=== PATIENT | female | born 1965 | race Caucasian/White ===

== ENCOUNTER → 2019-03-01 | Outpatient (CLI) | payer BC ==
--- NOTE | 2019-03-01 15:31 | KCIC ---
EXAM: Cervical spine, single view. HISTORY: Rheumatoid arthritis. COMPARISON: None. FINDINGS: A lateral view of the cervical spine is obtained. There is mild anterolisthesis of C4 on C5. There is degenerative endplate remodeling with disc space narrowing predominantly at C5-C6, and to lesser extent, C4-C5 and C6-C7. There is multilevel facet arthropathy. No fracture is seen. There is kyphosis centered at the cervicothoracic junction. IMPRESSION: 1. Multilevel degenerative change, primarily at C5-C6. 2. Mild anterolisthesis of C4 on C5. Electronically signed by: Sparkle Husain MD (03/01/2019 3:28 PM) [facility]
--- NOTE | 2019-03-01 15:34 | KCIC ---
EXAM: Bilateral knees, single view. HISTORY: Rheumatoid arthritis. COMPARISON: None. FINDINGS: A frontal view of both knees is obtained. There is no fracture, dislocation or subluxation. There is no lytic or sclerotic osseous lesion. There is no periosteal reaction. There is no joint space narrowing. IMPRESSION: No acute osseous finding. Electronically signed by: Sparkle Husain MD (03/01/2019 3:31 PM) [facility]
--- NOTE | 2019-03-01 15:35 | KCIC ---
EXAM: Pelvis, single view. HISTORY: Rheumatoid arthritis. COMPARISON: None. FINDINGS: A frontal view of the pelvis is obtained. There is no fracture, dislocation or subluxation. The femoral heads are normal in position. There may be degenerative subchondral cyst formation at the left greater than right femoral head neck junction. This is not clearly within limits to suggest chronic hip impingement. IMPRESSION: No acute osseous finding. Electronically signed by: Sparkle Husain MD (03/01/2019 3:32 PM) [facility]
--- NOTE | 2019-03-01 15:42 | KCIC ---
EXAM: Bilateral hands and feet, single view. HISTORY: Rheumatoid arthritis. COMPARISON: None. FINDINGS: Single views of both hands and feet are obtained. There is no fracture, dislocation or subluxation. The alignment and joint spaces are unremarkable. No erosion or suspicious lytic or sclerotic osseous lesion is seen. No soft tissue lesion is seen. IMPRESSION: No acute osseous finding. Electronically signed by: Sparkle Husain MD (03/01/2019 3:39 PM) [facility]
== END | disposition home or self-care (01) ==
LOC: KCIC 14:30
PROVIDERS: ATTEND Internal Medicine Rheumatology
DX: M47.812 Spondylosis without myelopathy or radiculopathy, cervical region (principal); M40.292 Other kyphosis, cervical region; M48.02 Spinal stenosis, cervical region
CPT/HCPCS: 72020; 72170; 73120; 73565; 73620

== ENCOUNTER → 2019-04-05 | Outpatient (CLI) | payer BC ==
--- NOTE | 2019-04-05 13:33 | KCIC ---
MRI of the cervical spine without contrast 04/05/2019 Clinical history: Neck pain. TECHNIQUE: Unenhanced T1-weighted, T2-weighted and inversion recovery sagittal and gradient echo and T2-weighted axial images of the cervical spine were obtained. FINDINGS: Comparison is made to radiographs of the cervical spine dated 03/01/2019. Minimal lateral curvature of the cervical spine is seen convex to the left. There is straightening of the normal cervical lordosis. Degenerative signal changes are seen involving all of the disks of the cervical spine. Loss of height of the C4-5, C5-6 and C6-7 discs is noted. Degenerative signal changes are seen within the marrow surrounding these discs. No area of abnormal signal intensity is seen involving the cervical spinal cord. At the C2-3 disc space there is a mild generalized disc bulge. Superimposed on this disc bulge is a focal central disc protrusion. This measures 2 mm in AP diameter. Degenerative changes are seen involving the uncovertebral and facet joints bilaterally. These findings when combined do not result in significant central spinal canal or neural foraminal stenosis. At the C3-4 disc space there is a mild generalized disc bulge. Superimposed on this disc bulge is a focal central disc protrusion. This measures 3 mm in AP diameter. Degenerative changes are seen involving the uncovertebral and facet joints, left greater than right. These findings when combined do not result in significant central spinal canal or neural foraminal stenosis. At the C4-5 disc space is a mild to moderate generalized disc bulge. Degenerative changes are seen involving the uncovertebral and facet joints bilaterally. These findings do not result in significant central spinal canal stenosis. Mild bilateral neural foraminal stenosis is seen. At the C5-6 disc space there is a mild to moderate generalized disc bulge. Degenerative changes are seen involving the uncovertebral and facet joints, left greater than right. These findings when combined efface the anterior CSF resulting in mild central spinal canal stenosis without evidence of cord impingement. Severe left neural foraminal stenosis is seen. The right neural foramen is patent. At the C6-7 disc space there is a mild to moderate generalized disc bulge. This is eccentric to the right. Degenerative changes are seen involving the uncovertebral and facet joints, right greater than left. These findings do not result in significant central spinal canal or neural foraminal stenosis. At the C7-T1 disc space there is a minimal generalized disc bulge. Degenerative changes are seen involving the facet joints bilaterally. These findings do not result in significant central spinal canal or neural foraminal stenosis. IMPRESSION: Degenerative changes are seen throughout the cervical spine. These findings result in mild central spinal canal stenosis without evidence of cord impingement at C5-6. Mild bilateral neural foraminal stenosis is seen at C4-5. Severe left neural foraminal stenosis is seen at C5-6. Electronically signed by: Jamie Anderson MD (04/05/2019 1:30 PM) [facility]
== END | disposition home or self-care (01) ==
LOC: KCIC MRI 12:13
PROVIDERS: ATTEND Registered Nurse
DX: M47.812 Spondylosis without myelopathy or radiculopathy, cervical region (principal); M48.02 Spinal stenosis, cervical region; M50.20 Other cervical disc displacement, unspecified cervical region
CPT/HCPCS: 72141